=== PATIENT | female | born 1990 | race Caucasian/White ===

== ENCOUNTER 2021-01-18 13:44 | Emergency (ER) | payer OTHER, MEDICAID, SELFPAY ==
[2021-01-18] VITALS (8 sets, daily range): BP systolic 130; BP diastolic 89; PULSE 116–136; RESP 22; TEMP 36.4; O2SAT 98–100; BMI 19.2
[2021-01-18] MEDS: ONDANSETRON 4 MG/2 ML INJ IV (14:30)
[2021-01-18] MEDS: SODIUM CHLORIDE 0.9% 1,000 ML 1000 ML IV (14:31)
[2021-01-18 14:55] LABS: Add Manual Diff / Slide Review NO; Basophils Absolute Auto 0 /uL (0-100); Basophils Percent Auto 0.3 % (0-2); Eosinophils Absolute Auto 200 /uL (0-450); Eosinophils Percent Auto 3.4 % (2-4); Hematocrit 36.9 % (36-46); Hemoglobin 11.9 g/dL (12.0-16.0); Lymphocytes Absolute Auto 1600 /uL (1100-4500); Lymphocytes Percent Auto 26.8 % (25-40); Mean Corpuscular HGB Conc 32.2 % (30-36); Mean Corpuscular Hemoglobin 22.6 PG (26-34); Mean Corpuscular Volume 70.1 fL (80-100); Monocytes Absolute Auto 400 /uL (0-900); Monocytes Percent Auto 7.1 % (3-14); Neutrophils Absolute Auto 3800 /uL (1500-7000); Neutrophils Percent Auto 62.4 % (50-75); Platelet Count 314 X10^3/uL (150-400); Red Blood Cell Count 5.27 X10^6/uL (4.0-5.2); White Blood Cell Count 6.1 X10^3/uL (4.5-11.0)
[2021-01-18 15:00] LABS: Alanine Aminotransferase 24 IU/L (<35); Albumin 4.2 g/dL (3.5-5.0); Albumin Globulin Ratio 1.2 (1.0-2.8); Alkaline Phosphatase 120 U/L (38-126); Aspartate Aminotransferase 24 IU/L (14-36); BUN Creatinine Ratio 33.3 (6-22); Bilirubin Total 0.2 mg/dL (0.2-1.3); Blood Urea Nitrogen 8 mg/dL (7-17); Calcium 9.6 mg/dL (8.4-10.2); Carbon Dioxide 22 mmol/L (22-32); Chloride 107 mmol/L (98-107); Estimated Glomerular Filt Rate > 60.0 mL/min (>60); Globulin 3.4 g/dL (1.7-4.1); Glucose 102 mg/dL (70-100); HEMOLYSIS < 15 (0-50); Lipase 49 U/L (23-300); Sodium 138 mmol/L (137-145); Total Protein 7.6 g/dL (6.3-8.2)
[2021-01-18 15:06] LABS: COVID19 -Nasal RAPID Negative (Negative)
--- NOTE | 2021-01-18 15:06 | ED.NAVMDI ---
HPI - Nausea/Vomiting/Diarrhea General Chief complaint: Nausea/Vomiting/Diarrhea Stated complaint: Neon Yellow Diarrhea, Nauseous Time Seen by Provider: 01/18/21 14:59 Source: patient Mode of arrival: Ambulatory Limitations: no limitations History of Present Illness HPI Narrative: Patient is a 30-year-old female here for evaluation of approximately 5-6 days of nausea but no vomiting. Is also having diarrhea. Also states she is having a hard time urinating. She states that her lower abdomen feels like it is cramping. No recent travel. No recent antibiotics. Has not been around anyone who has been sick. Has tried anti diarrheal medicines without any improvement of symptoms. No fevers but she states she has not taken her temperature. Related Data Previous Rx's Medication Instructions Recorded atenolol 25 mg PO DAILY #30 tab 01/18/21 azithromycin See Rx Instructions .ROUTE 01/18/21 .COMPLEX #6 tab methimazole 10 mg PO DAILY #30 tab 01/18/21 Allergies Allergy/AdvReac Type Severity Reaction Status Date / Time adhesive tape [ADHESIVE TAPE] Allergy Unknown Rash Verified 01/18/21 14:20 hydrocodone [From VICODIN] Allergy Unknown Rash/nausea Verified 01/18/21 14:20 Review of Systems Constitutional Constitutional: Denies fever(s) Cardiovascular Cardiovascular: Denies chest pain and Denies dyspnea Respiratory Respiratory: Denies dyspnea Gastrointestinal Gastrointestinal: Reports diarrhea, Reports nausea and Denies vomiting Comments: Lower abdominal cramping Genitourinary Comments: Hard time urinating Musculoskeletal Musculoskeletal: Reports system reviewed and no additional complaints, except as documented Integumentary/Breasts Skin/Breast: Denies rash Neurologic Neurologic: Reports system reviewed and no additional complaints, except as documented Hematologic/Lymphatic Hematologic/Lymphatic: Reports system reviewed and no additional complaints, except as documented Allergic/Immunologic Allergic/Immunologic: Reports system reviewed and no additional complaints, except as documented Patient History Medical History (Updated 01/18/21 @ 17:43 by Clovis Meza DO) Hyperthyroidism affecting in second trimester (09/03/15) Karyotype 45, X (10/10/15) Spontaneous vaginal delivery Surgical History (Updated 12/14/17 @ 06:09 by Conversion Provider) Status post tonsillectomy and adenoidectomy Social History Smoking Status: Current every day smoker Smoking Status: Current every day smoker tobacco type: cigarettes alcohol intake frequency: holidays/special occasions only Substance Use Type: marijuana Exam Initial Vital Signs Initial Vital Signs: Vital Signs Temperature 97.5 F L 01/18/21 14:12 Pulse Rate 136 H 01/18/21 14:12 Respiratory Rate 22 01/18/21 14:12 Blood Pressure 130/89 01/18/21 14:12 Pulse Oximetry 100 01/18/21 14:12 Const General: cooperative and comfortable Limitations: mental status not altered HENMT Head: normal to inspection and normocephalic Resp Effort & Inspection: normal respiratory effort Auscultation: clear to auscultation bilaterally Cardio Rate: tachycardic Rhythm: regular rhythm Pulses: radial pulses not present GI Inspection: non-distended Palpation: soft, No firm and No tender Skin Lesions: no lesions Rashes: no rashes Neuro General: patient alert, patient awake and patient oriented x3 Cognition: normal cognition Speech: speech normal Extrem General: normal to inspection and capillary refill normal Psych Appearance: grossly normal and well kempt Course Orders Ordered: ED Orders 01/18/21 14:05 GI Panel (Film Array) Stat 01/18/21 14:25 COVID19 -Nasal swab/Pre-Proc Stat Complete Blood Count AUTO DIFF Stat Comprehensive Metabolic Panel Stat Free T3, Triiodothyronine Free Stat Free T4, Direct Thyroxine Stat Lipase Stat Thyroid Stimulating Hormone Stat 01/18/21 15:06 EKG-12 Lead Stat Discontinued Medications Sodium Chloride (Normal Saline 0.9%) 1,000 mls @ 1,000 mls/hr IV BOLUS ONE Stop: 01/18/21 15:29 Last Infusion: 01/18/21 15:42 Dose: 0 mls/hr Documented by: Admin: 01/18/21 14:31 Dose: 1,000 mls/hr Documented by: ZOILA Ketorolac Tromethamine (Ketorolac 30 Mg/Ml Vial) 30 mg IV NOW ONE Stop: 01/18/21 15:53 Last Admin: 01/18/21 15:57 Dose: 30 mg Documented by: STEFAN Ondansetron HCl (Ondansetron 4 Mg/2 Ml Inj) 4 mg IV NOW ONE Stop: 01/18/21 14:17 Last Admin: 01/18/21 14:30 Dose: 4 mg Documented by: ZOILA Vital Signs Vital signs: Vital Signs - 8 hr 01/18/21 14:12 01/18/21 14:57 01/18/21 15:00 Temperature 97.5 F L Pulse Rate 136 H 116 H 118 H Respiratory Rate 22 Blood Pressure 130/89 Pulse Oximetry 100 99 99 01/18/21 15:30 01/18/21 16:22 01/18/21 16:30 Temperature Pulse Rate 122 H 126 H 121 H Respiratory Rate Blood Pressure Pulse Oximetry 98 99 98 MDM - Nausea/Vomiting/Diarrhea Lab Data Attestation: I reviewed the patient's lab results. Result diagrams: 01/18/21 14:25 01/18/21 14:25 Labs: Lab Results 01/18/21 01/18/21 01/18/21 Range/Units 14:05 14:25 14:25 WBC 6.1 (4.5-11.0) X10^3/uL RBC 5.27 H (4.0-5.2) X10^6/uL Hgb 11.9 L (12.0-16.0) g/dL Hct 36.9 (36-46) % MCV 70.1 L (80-100) fL MCH 22.6 L (26-34) PG MCHC 32.2 (30-36) % RDW 16.0 H (11.6-14.8) % Plt Count 314 (150-400) X10^3/uL Neut % (Auto) 62.4 (50-75) % Lymph % (Auto) 26.8 (25-40) % [place] % (Auto) 7.1 (3-14) % Eos % (Auto) 3.4 (2-4) % Baso % (Auto) 0.3 (0-2) % Neut # (Auto) 3800 (6834-8090) /uL Lymph # (Auto) 1600 (7408-8376) /uL [place] # (Auto) 400 (0-900) /uL Eos # (Auto) 200 (0-450) /uL Baso # (Auto) 0 (0-100) /uL Sodium 138 (137-145) mmol/L Potassium 4.0 (3.4-5.1) mmol/L Chloride 107 (98-107) mmol/L Carbon Dioxide 22 (22-32) mmol/L BUN 8 (7-17) mg/dL Creatinine 0.24 L (0.52-1.04) mg/dL Estimated GFR > 60.0 (>60) mL/min BUN/Creatinine Ratio 33.3 H (6-22) Glucose 102 H (70-100) mg/dL Calcium 9.6 (8.4-10.2) mg/dL Total Bilirubin 0.2 (0.2-1.3) mg/dL AST 24 (14-36) IU/L ALT 24 (<35) IU/L Alkaline Phosphatase 120 (38-126) U/L Total Protein 7.6 (6.3-8.2) g/dL Albumin 4.2 (3.5-5.0) g/dL Globulin 3.4 (1.7-4.1) g/dL Albumin/Globulin Ratio 1.2 (1.0-2.8) Lipase 49 (23-300) U/L TSH (0.47-4.68) uIU/mL Free T4 (0.78-2.19) ng/dL Free T3 (2.77-5.27) pg/mL Stl C. cayetanensis PCR Not detected (Not Detect) Stool Rotavirus (PCR) Not detected (Not Detect) Stool Adenovirus (PCR) Not detected (Not Detect) Stool Astrovirus (PCR) Not detected (Not Detect) Stool Cryptosporidium PCR Not detected (Not Detect) Stl E.coli Shiga Tox PCR Not detected (Not Detect) St Sh/Enteroin Ecoli PCR Not detected (Not Detect) Stool E coli O157 PCR Not detected (Not Detect) Stl Enterotoxigenic E PCR Not detected (Not Detect) Stool EPEC (PCR) Not detected (Not Detect) Stl E. histolytica PCR Not detected (Not Detect) Stool Giardia Lamblia PCR Not detected (Not Detect) Stool Sapovirus (PCR) Not detected (Not Detect) Stl P. shigelloides PCR Not detected (Not Detect) St Y.enterocolitica PCR Not detected (Not Detect) Stool Vibrio (PCR) Not detected (Not Detect) Stl Vibrio cholerae PCR Not detected (Not Detect) Stl Enteroaggr Ecoli PCR Not detected (Not Detect) Stl Norovirus GI/GII PCR Not detected (Not Detect) Campylobacter (PCR) Detected H (Not Detect) C. difficile Tox (PCR) Not detected (Not Detect) SARS-CoV-2 (PCR) (Negative) Salmonella (PCR) Not detected (Not Detect) 01/18/21 01/18/21 01/18/21 Range/Units 14:25 14:25 14:25 WBC (4.5-11.0) X10^3/uL RBC (4.0-5.2) X10^6/uL Hgb (12.0-16.0) g/dL Hct (36-46) % MCV (80-100) fL MCH (26-34) PG MCHC (30-36) % RDW (11.6-14.8) % Plt Count (150-400) X10^3/uL Neut % (Auto) (50-75) % Lymph % (Auto) (25-40) % [place] % (Auto) (3-14) % Eos % (Auto) (2-4) % Baso % (Auto) (0-2) % Neut # (Auto) (0358-1003) /uL Lymph # (Auto) (1143-0775) /uL [place] # (Auto) (0-900) /uL Eos # (Auto) (0-450) /uL Baso # (Auto) (0-100) /uL Sodium (137-145) mmol/L Potassium (3.4-5.1) mmol/L Chloride (98-107) mmol/L Carbon Dioxide (22-32) mmol/L BUN (7-17) mg/dL Creatinine (0.52-1.04) mg/dL Estimated GFR (>60) mL/min BUN/Creatinine Ratio (6-22) Glucose (70-100) mg/dL Calcium (8.4-10.2) mg/dL Total Bilirubin (0.2-1.3) mg/dL AST (14-36) IU/L ALT (<35) IU/L Alkaline Phosphatase (38-126) U/L Total Protein (6.3-8.2) g/dL Albumin (3.5-5.0) g/dL Globulin (1.7-4.1) g/dL Albumin/Globulin Ratio (1.0-2.8) Lipase (23-300) U/L TSH < 0.015 L (0.47-4.68) uIU/mL Free T4 5.63 H (0.78-2.19) ng/dL Free T3 > 22.80 H (2.77-5.27) pg/mL Stl C. cayetanensis PCR (Not Detect) Stool Rotavirus (PCR) (Not Detect) Stool Adenovirus (PCR) (Not Detect) Stool Astrovirus (PCR) (Not Detect) Stool Cryptosporidium PCR (Not Detect) Stl E.coli Shiga Tox PCR (Not Detect) St Sh/Enteroin Ecoli PCR (Not Detect) Stool E coli O157 PCR (Not Detect) Stl Enterotoxigenic E PCR (Not Detect) Stool EPEC (PCR) (Not Detect) Stl E. histolytica PCR (Not Detect) Stool Giardia Lamblia PCR (Not Detect) Stool Sapovirus (PCR) (Not Detect) Stl P. shigelloides PCR (Not Detect) St Y.enterocolitica PCR (Not Detect) Stool Vibrio (PCR) (Not Detect) Stl Vibrio cholerae PCR (Not Detect) Stl Enteroaggr Ecoli PCR (Not Detect) Stl Norovirus GI/GII PCR (Not Detect) Campylobacter (PCR) (Not Detect) C. difficile Tox (PCR) (Not Detect) SARS-CoV-2 (PCR) Negative (Negative) Salmonella (PCR) (Not Detect) Point of Care Testing Test Results Negative Urine Dip Bedside Urine Glucose Negative Bedside Urine Bilirubin - Negative Bedside Urine Ketone - Negative Urine Specific [place] 1.030 Bedside Urine Occult Blood - Negative Bedside Urine pH 6.0 Bedside Urine Protein - Negative Bedside Urine Urobilinogen - Negative Bedside Urine Nitrite - Negative Bedside Urine Leukocytes - Negative Esterase ECG Data Attestation: I personally reviewed and interpreted this ECG as follows: Prior ECG tracings: not available for review Interpretation: Sinus tachycardia Ventricular rate 127 Normal axis Normal QRS Normal QTC No ST T wave changes MDM Narrative Medical decision making narrative: Patient's labs are reassuring. Her stool cultures are positive for Campylobacter. Patient states she has had diarrhea for the past 5 days and has lost 15 lb so because of this we will start her on antibiotics despite my initial recommendation to wait to see if her symptoms do not improve over the next couple days. Patient is also tachycardic. She has had hyperthyroidism in the past but this was when she was . She is not currently . She has not had her thyroid levels checked in the past several years. She states she has had weight loss, anxiety, hair loss, palpitations. Her labs today are consistent with hyperthyroidism. She is not in thyroid storm. Will start her on atenolol and methimazole. She states she has been on methimazole in the past. She was also given phone number to contact the health human resources associate to help establish a primary provider. She was given return precautions. She expressed understanding agreement. Discharge Plan Departure Patient Disposition: Home Clinical Impression: Hyperthyroidism, Campylobacter diarrhea Instructions: Diarrhea, DI for Hyperthyroidism Activity Restrictions/Additional Instructions: I recommend that on Wednesday you contact the health resource is coordinator here at the [facility] at [phone]. This individual can help you establish a primary doctor which I highly recommend that you do given your thyroid issues today. Start taking all the medications as directed. Return to the emergency department for any new or worsening symptoms. Your medications were electronically transmitted to [facility] in [place] Prescriptions: New azithromycin 250 mg tablet See Rx Instructions .ROUTE .COMPLEX Qty: 6 RF: 0 atenolol 25 mg tablet 25 mg PO DAILY Qty: 30 RF: 2 methimazole 10 mg tablet 10 mg PO DAILY Qty: 30 RF: 2 Referrals: Miscellaneous,Doctor, MD [Primary Care Provider] -
[2021-01-18] MEDS: KETOROLAC 30 MG/ML VIAL IV (15:57)
[2021-01-18 15:58] LABS: Thyroid Stimulating Hormone < 0.015 uIU/mL (0.47-4.68)
[2021-01-18 16:14] LABS: Adenovirus F 40/41 Not Detected (Not Detect); Astrovirus Not Detected (Not Detect); Clostridium difficile toxin AB Not Detected (Not Detect); Cryptosporidium Not Detected (Not Detect); Cyclospora cayetanensis Not Detected (Not Detect); Entamoeba histolytica Not Detected (Not Detect); Enteroaggregative E.coli Not Detected (Not Detect); Enteropathogenic E.coli Not Detected (Not Detect); Enterotoxigenic E.coli It/st Not Detected (Not Detect); Giardia lamblia Not Detected (Not Detect); Norovirus GI/GII Not Detected (Not Detect); Plesiomonsa shigelloides Not Detected (Not Detect); Rotavirus A Not Detected (Not Detect); Salmonella Not Detected (Not Detect); Sapovirus Not Detected (Not Detect); Shiga-like toxin-prod E.coli Not Detected (Not Detect); Shigella/Enteroinvasive E.coli Not Detected (Not Detect); Vibrio Not Detected (Not Detect); Vibrio cholerae Not Detected (Not Detect); Yersinia enterocolitica Not Detected (Not Detect)
[2021-01-18 16:17] LABS: Campylobacter Detected (Not Detect)
[2021-01-18 17:29] LABS: Free T3, Triiodothyronine Free > 22.80 pg/mL (2.77-5.27); Free T4, Direct Thyroxine 5.63 ng/dL (0.78-2.19)
== END 2021-01-18 17:55 | disposition home or self-care (01) ==
PROVIDERS: Emergency Medicine; Emergency Provider Emergency Medicine
DX: A04.5 Campylobacter enteritis (principal); E05.90 Thyrotoxicosis, unspecified without thyrotoxic crisis or storm; R10.30 Lower abdominal pain, unspecified; Z20.822 Contact with and (suspected) exposure to COVID-19
CPT/HCPCS: 36415; 80053; 81003; 81025; 83690; 84439; 84443; 84481; 85025; 87507; 87635; 93005; 96361; 96374; 96375; 99284; C9803; J1885; J2405

== ENCOUNTER 2022-09-09 17:06 | Emergency (ER) | payer OTHER, MEDICAID, SELFPAY ==
[2022-09-09 17:39] VITALS: BP 134/99; PULSE 145; RESP 22; TEMP 36.8; O2SAT 100; BMI 19.2
[2022-09-09 18:20] LABS: Add Manual Diff / Slide Review NO; Basophils Absolute Auto 0 /uL (0-100); Basophils Percent Auto 0.5 % (0-2); Eosinophils Absolute Auto 400 /uL (0-450); Eosinophils Percent Auto 7.9 % (2-4); Hematocrit 34.9 % (36-46); Hemoglobin 11.6 g/dL (12.0-16.0); Lymphocytes Absolute Auto 2200 /uL (1100-4500); Lymphocytes Percent Auto 38.8 % (25-40); Mean Corpuscular HGB Conc 33.1 % (30-36); Mean Corpuscular Hemoglobin 23.2 PG (26-34); Monocytes Absolute Auto 400 /uL (0-900); Monocytes Percent Auto 7.4 % (3-14); Neutrophils Absolute Auto 2600 /uL (1500-7000); Neutrophils Percent Auto 45.4 % (50-75); Platelet Count 293 X10^3/uL (150-400); Red Blood Cell Count 4.98 X10^6/uL (4.0-5.2); Red Cell Distribution Width 15.7 % (11.6-14.8); White Blood Cell Count 5.6 X10^3/uL (4.5-11.0)
[2022-09-09 18:27] VITALS: BP 139/77; PULSE 127; O2SAT 99
[2022-09-09 18:30] VITALS: BP 122/82; PULSE 124; RESP 20; O2SAT 98
[2022-09-09 18:32] LABS: Alanine Aminotransferase 19 IU/L (<35); Albumin Globulin Ratio 1.2 (1.0-2.8); Alkaline Phosphatase 109 U/L (38-126); Aspartate Aminotransferase 22 IU/L (14-36); BUN Creatinine Ratio 32.1 (6-22); Bilirubin Total 0.4 mg/dL (0.2-1.3); Blood Urea Nitrogen 9 mg/dL (7-17); Calcium 8.7 mg/dL (8.4-10.2); Carbon Dioxide 23 mmol/L (22-32); Chloride 106 mmol/L (98-107); Estimated Glomerular Filt Rate > 60 mL/min (>60); Globulin 3.3 g/dL (1.7-4.1); Glucose 105 mg/dL (70-100); HEMOLYSIS < 15 (0-50); Magnesium 1.7 mg/dL (1.6-2.3); Potassium 3.9 mmol/L (3.4-5.1); Sodium 138 mmol/L (137-145); Total Protein 7.3 g/dL (6.3-8.2)
[2022-09-09 18:33] LABS: Lactate (Lactic Acid) 0.8 mmol/L (0.7-2.1)
[2022-09-09] MEDS: SODIUM CHLORIDE 0.9% 1,000 ML 1000 ML IV (18:42)
[2022-09-09 18:50] LABS: Free T3, Triiodothyronine Free > 22.80 pg/mL (2.77-5.27); Free T4, Direct Thyroxine 6.37 ng/dL (0.78-2.19)
--- NOTE | 2022-09-09 19:04 | ED_ITS ---
HPI - Arrhythmia/Palpitations General Chief Complaint: Arrhythmia/Palpitations Stated Complaint: racing heartluisa Time Seen by Provider: 09/09/22 17:55 Source: patient Mode of arrival: Ambulatory History of Present Illness HPI narrative: Patient is a 31-year-old female who has a history of hyperthyroidism presents today with hot flashes and heart palpitations. She reports that she is not taken medication in years. She denies any dizziness or lightheadedness she is noted to be quite tachycardic with a heart rate in the 140s. She is not passed out. She says that she is had transportation issues and hard time getting to doctor's appointments. She denies abdominal pain nausea vomiting or other symptoms. She reports it is difficult to swallow but she is able to swallow liquids and eat a little. She also reports that she is lost weight and hair Related Data Previous Rx's Medication Instructions Recorded atenolol 25 mg tablet 25 mg PO DAILY #30 tabs 01/18/21 azithromycin 250 mg tablet See Rx Instructions PO .COMPLEX #6 01/18/21 tabs methimazole 10 mg tablet 10 mg PO DAILY #30 tabs 01/18/21 atenolol 25 mg tablet 25 mg PO DAILY #60 tabs 09/09/22 methimazole 10 mg tablet 10 mg PO BID #60 tabs 09/09/22 Allergies Allergy/AdvReac Type Severity Reaction Status Date / Time adhesive tape [ADHESIVE TAPE] Allergy Unknown Rash Verified 08/19/22 16:38 hydrocodone [From VICODIN] Allergy Unknown Rash/nausea Verified 08/19/22 16:38 Review of Systems Review of Systems ROS Unobtainable: All systems reviewed & are unremarkable except as noted in HPI and below Patient History Medical History Hyperthyroidism affecting in second trimester (09/03/15) Karyotype 45, X (10/10/15) Spontaneous vaginal delivery Surgical History Status post tonsillectomy and adenoidectomy Social History Smoking Status: Current every day smoker Smoking Status: Current every day smoker tobacco type: cigarettes alcohol intake frequency: holidays/special occasions only Substance Use Type: marijuana Exam Initial Vital Signs Initial Vital Signs: Vital Signs Temperature 98.3 F 09/09/22 17:39 Pulse Rate 145 H 09/09/22 17:39 Respiratory Rate 22 09/09/22 17:39 Blood Pressure 134/99 H 09/09/22 17:39 Pulse Oximetry 100 09/09/22 17:39 Oxygen Delivery Method 09/09/22 17:39 GENERAL: Alert well-appearing 31-year-old female HEENT: Head atraumatic,EOMI, pupils reactive, face symmetric, moist mucous membranes NECK: Goiter noted CARDIOVASCULAR: Tachycardic regular no murmurs RESPIRATORY: Breath sounds equal bilaterally, no wheezes rales or rhonchi. ABDOMEN: Soft, nontender. Normoactive bowel sounds all 4 quadrants. No guarding or rebound. EXTREMITIES: Normal range of motion, no clubbing or edema. Neurovascularly intact NEUROLOGICAL: Alert and oriented x4 SKIN: Warm, dry, no laceration, no petechiae, no rashes or lesions. Course Orders Ordered: ED Orders 09/09/22 19:14 Consult to NURSING UNIT COORDINATOR - Road Cutter Stat Discontinued Medications Sodium Chloride (Normal Saline 0.9%) 1,000 mls @ 1,000 mls/hr IV BOLUS ONE Stop: 09/09/22 19:03 Last Infusion: 09/09/22 19:54 Dose: 0 mls/hr Documented By: Admin: 09/09/22 18:42 Dose: 1,000 mls/hr Documented By: LESLIE(2) Sodium Chloride (Normal Saline 0.9%) 1,000 mls @ 150 mls/hr IV CONT LISA Last Admin: 09/09/22 20:34 Dose: 150 mls/hr Documented By: CHRISTIN Methimazole (Methimazole 5 Mg Tablet) 15 mg PO NOW ONE Stop: 09/09/22 19:15 Last Admin: 09/09/22 20:34 Dose: 15 mg Documented By: CHRISTIN Propranolol HCl (Propranolol 40 Mg Tablet) 40 mg PO NOW ONE Stop: 09/09/22 19:12 Last Admin: 09/09/22 20:35 Dose: Not Given Documented By: CHRISTIN Propranolol HCl (Propranolol 10 Mg Tablet) 40 mg PO NOW ONE Stop: 09/09/22 20:31 Last Admin: 09/09/22 20:34 Dose: 40 mg Documented By: HNG Vital Signs Vital signs: Vital Signs - 8 hr 09/09/22 22:25 Pulse Rate 117 H Respiratory Rate 20 Blood Pressure 122/83 Pulse Oximetry 99 Oxygen Delivery Method Room Air MDM - Arrhythmia/Palpitations Lab Data 09/09/22 18:05 09/09/22 18:05 Labs: Lab Results 09/09/22 09/09/22 09/09/22 Range/Units 18:05 18:05 18:05 WBC 5.6 (4.5-11.0) X10^3/uL RBC 4.98 (4.0-5.2) X10^6/uL Hgb 11.6 L (12.0-16.0) g/dL Hct 34.9 L (36-46) % MCV 70.0 L (80-100) fL MCH 23.2 L (26-34) PG MCHC 33.1 (30-36) % RDW 15.7 H (11.6-14.8) % Plt Count 293 (150-400) X10^3/uL Neut % (Auto) 45.4 L (50-75) % Lymph % (Auto) 38.8 (25-40) % [place] % (Auto) 7.4 (3-14) % Eos % (Auto) 7.9 H (2-4) % Baso % (Auto) 0.5 (0-2) % Neut # (Auto) 2600 (3034-7511) /uL Lymph # (Auto) 2200 (0180-2297) /uL [place] # (Auto) 400 (0-900) /uL Eos # (Auto) 400 (0-450) /uL Baso # (Auto) 0 (0-100) /uL Sodium 138 (137-145) mmol/L Potassium 3.9 (3.4-5.1) mmol/L Chloride 106 (98-107) mmol/L Carbon Dioxide 23 (22-32) mmol/L BUN 9 (7-17) mg/dL Creatinine 0.28 L (0.52-1.04) mg/dL Estimated GFR > 60 (>60) mL/min BUN/Creatinine Ratio 32.1 H (6-22) Glucose 105 H (70-100) mg/dL Lactate (0.7-2.1) mmol/L Calcium 8.7 (8.4-10.2) mg/dL Magnesium 1.7 (1.6-2.3) mg/dL Total Bilirubin 0.4 (0.2-1.3) mg/dL AST 22 (14-36) IU/L ALT 19 (<35) IU/L Alkaline Phosphatase 109 (38-126) U/L Total Protein 7.3 (6.3-8.2) g/dL Albumin 4.0 (3.5-5.0) g/dL Globulin 3.3 (1.7-4.1) g/dL Albumin/Globulin Ratio 1.2 (1.0-2.8) TSH < 0.015 L (0.47-4.68) uIU/mL Free T4 6.37 H (0.78-2.19) ng/dL Free T3 > 22.80 H (2.77-5.27) pg/mL 09/09/22 Range/Units 18:05 WBC (4.5-11.0) X10^3/uL RBC (4.0-5.2) X10^6/uL Hgb (12.0-16.0) g/dL Hct (36-46) % MCV (80-100) fL MCH (26-34) PG MCHC (30-36) % RDW (11.6-14.8) % Plt Count (150-400) X10^3/uL Neut % (Auto) (50-75) % Lymph % (Auto) (25-40) % [place] % (Auto) (3-14) % Eos % (Auto) (2-4) % Baso % (Auto) (0-2) % Neut # (Auto) (3546-0886) /uL Lymph # (Auto) (2212-7587) /uL [place] # (Auto) (0-900) /uL Eos # (Auto) (0-450) /uL Baso # (Auto) (0-100) /uL Sodium (137-145) mmol/L Potassium (3.4-5.1) mmol/L Chloride (98-107) mmol/L Carbon Dioxide (22-32) mmol/L BUN (7-17) mg/dL Creatinine (0.52-1.04) mg/dL Estimated GFR (>60) mL/min BUN/Creatinine Ratio (6-22) Glucose (70-100) mg/dL Lactate 0.8 (0.7-2.1) mmol/L Calcium (8.4-10.2) mg/dL Magnesium (1.6-2.3) mg/dL Total Bilirubin (0.2-1.3) mg/dL AST (14-36) IU/L ALT (<35) IU/L Alkaline Phosphatase (38-126) U/L Total Protein (6.3-8.2) g/dL Albumin (3.5-5.0) g/dL Globulin (1.7-4.1) g/dL Albumin/Globulin Ratio (1.0-2.8) TSH (0.47-4.68) uIU/mL Free T4 (0.78-2.19) ng/dL Free T3 (2.77-5.27) pg/mL ECG Data Interpretation: Normal sinus rhythm rate 137 NM interval 130 QRS 70 QTC 4 heard he [address] changes no T-wave inversions mild artifact noted MDM Narrative Medical decision making narrative: Patient 31-year-old female history of hyperthyroidism noncompliant with medication longstanding presents today with tachycardia and symptoms of hyperthyroid. She does have some hyperthyroid storm. She is afebrile normal lactate. Unlikely to be thyroiditis. She is given propranolol here in the ED along with methimazole. Her heart rate improves to 117. At this time I do not see need for admitting her to the hospital. She needs to restart her medication and follow-up with PCP. She is previously had transportation issues. I have consulted social work who help her get a primary tomorrow, seeing as though it is too late. Discharge Plan Departure Patient Disposition: Home Clinical Impression: Hyperthyroidism Activity Restrictions/Additional Instructions: *You have been diagnosed with hyperthyroid *What to do: At this time you must take her medications. Social work should ca ll you tomorrow to help set up a primary care provider. *Continue to take medications as directed--> sent to [facility] in [place] Methimazole 10 mg twice a day Atenolol 25 mg once daily *Follow up with your primary care provider in 2-3 days or call [phone] *Return to ER if you should have increasing neck pain inability to swallow fever greater than 100.4 increasing heart rate greater than 115 or any new, worsening or concerning symptoms Prescriptions: New atenolol 25 mg tablet 25 mg PO DAILY Qty: 60 0RF methimazole 10 mg tablet 10 mg PO BID Qty: 60 0RF No Action azithromycin 250 mg tablet See Rx Instructions .ROUTE .COMPLEX Qty: 6 0RF Rx Instructions: take 500 mg today (day 1), then 250 mg for 4 days (days 2-5) atenolol 25 mg tablet 25 mg PO DAILY Qty: 30 2RF methimazole 10 mg tablet 10 mg PO DAILY Qty: 30 2RF Stand Alone Forms: Patient Portal/API
[2022-09-09 19:12] LABS: Thyroid Stimulating Hormone < 0.015 uIU/mL (0.47-4.68)
[2022-09-09] MEDS: methIMAzole 5 MG TABLET 15 MG PO (20:34)
[2022-09-09] MEDS: PROPRANOLOL 10 MG TABLET 40 MG PO (20:34)
[2022-09-09] MEDS: SODIUM CHLORIDE 0.9% 1,000 ML 150 ML IV (20:34)
[2022-09-09 22:25] VITALS: BP 122/83; PULSE 117; RESP 20; O2SAT 99
--- NOTE | 2022-09-10 14:00 | CM.SWNOTE ---
M[employer]ORCY[employer] FINAL INSPECTOR/ ED DCP Note Patient is 31 y/o female who presents to ED due to concern for thyroid issues. It is reported to MOTOR[employer] FINAL INSPECTOR by ED provider that patient does not have PCP and is in need of PCP f/u. Patient has [facility] Medicaid insurance. MOTORCYLES FINAL INSPECTOR enters room to meet with patient on 09/09/22 in the evening and endorses that MOTOR[employer] FINAL INSPECTOR will call PCP offices tomorrow and schedule PCP appt for patient. Patient indicates agreement and understanding and denies further needs. MOTOR[employer] FINAL INSPECTOR calls PCP office on 09/10/22, they are able to schedule patient for ED f/u appt with TRINO Giang for 09/15/22 at 10 AM and patient's ongoing PCP will be Dr. Petty Pulliam. MOTOR[employer] FINAL INSPECTOR calls patient and patient endorses agreement and understanding. Plan: patient to f/u with ED f/u PCP appt with Kenia Land on 09/15/22. JOHANNY Vasquez
== END 2022-09-09 22:26 | disposition home or self-care (01) ==
PROVIDERS: Emergency Medicine; Emergency Provider Emergency Medicine
DX: E05.90 Thyrotoxicosis, unspecified without thyrotoxic crisis or storm (principal); R00.0 Tachycardia, unspecified; R00.2 Palpitations; Z91.14 Patient's other noncompliance with medication regimen
CPT/HCPCS: 36415; 80053; 83605; 83735; 84439; 84443; 84481; 85025; 93005; 99284

== ENCOUNTER → 2022-10-14 08:14 | Outpatient (CLI) | payer OTHER, MEDICAID, SELFPAY ==
--- NOTE | 2022-10-14 08:15 | DI.NM.S_ITS ---
PROCEDURE: NM UPTAKE AND SCAN RADIOPHARMACEUTICAL: 390 ?Ci I-123 sodium iodide by mouth. INDICATIONS: hyperthyroidism TECHNIQUE: I-123 sodium iodide was administered orally. Anterior neck images were obtained, and iodine uptake by the thyroid gland calculated using intensive care unit nurse's software. COMPARISON: None. FINDINGS: Morphology: The thyroid gland has normal morphology and uniform activity. No 'cold' or 'hot' thyroid nodules are identified. Uptake: 6 hour thyroid uptake is 87.4%; normal ranges are from 6-18%. 24 hour thyroid uptake is 88.6%; normal ranges are from 10-30%. IMPRESSION: Abnormally increased thyroid uptake present, which is consistent with the given clinical history of hyperthyroidism. Dictated by: Herrera Mustafa M.D. on 10/15/2022 at 13:45 Approved by: Herrera Mustafa M.D. on 10/15/2022 at 13:47
== END ==
PROVIDERS: Referring Provider Nurse Practitioner Family; Visit Provider Nurse Practitioner Family
DX: E05.90 Thyrotoxicosis, unspecified without thyrotoxic crisis or storm (principal)
CPT/HCPCS: 78014; A9516

== ENCOUNTER → 2022-11-09 16:58 | Outpatient (CLI) | payer OTHER, MEDICAID, SELFPAY ==
[2022-11-09 18:19] LABS: Hematocrit 35.7 % (36-46); Hemoglobin 11.8 g/dL (12.0-16.0); Mean Corpuscular Hemoglobin 22.9 PG (26-34); Mean Corpuscular Volume 69.6 fL (80-100); Platelet Count 365 X10^3/uL (150-400); Red Blood Cell Count 5.14 X10^6/uL (4.0-5.2); Red Cell Distribution Width 16.3 % (11.6-14.8); White Blood Cell Count 8.4 X10^3/uL (4.5-11.0)
[2022-11-09 20:27] LABS: BUN Creatinine Ratio 10.9 (6-22); Blood Urea Nitrogen 7 mg/dL (7-17); Calcium 8.4 mg/dL (8.4-10.2); Carbon Dioxide 24 mmol/L (22-32); Chloride 105 mmol/L (98-107); Estimated Glomerular Filt Rate > 60 mL/min (>60); Glucose 115 mg/dL (70-100); HEMOLYSIS < 15 (0-50); Sodium 136 mmol/L (137-145)
[2022-11-09 20:29] LABS: Potassium 3.8 mmol/L (3.4-5.1)
[2022-11-09 20:43] LABS: Free T3, Triiodothyronine Free 6.33 pg/mL (2.77-5.27); Free T4, Direct Thyroxine 1.15 ng/dL (0.78-2.19)
[2022-11-09 21:03] LABS: Thyroid Stimulating Hormone < 0.015 uIU/mL (0.47-4.68)
== END ==
PROVIDERS: PCP Family Medicine; Referring Provider Nurse Practitioner Family; Visit Provider Nurse Practitioner Family
DX: E05.90 Thyrotoxicosis, unspecified without thyrotoxic crisis or storm (principal)
CPT/HCPCS: 36415; 80048; 84439; 84443; 84481; 85027